=== PATIENT | female | born 1990 | race American Indian/Alaskan Native ===

== ENCOUNTER 2019-02-11 06:30 | Emergency (ER) | payer SELFPAY ==
[2019-02-11 06:57] VITALS: BP 134/76
[2019-02-11] MEDS ORDERED: PEPCID PO ONE (08:24)
[2019-02-11] MEDS ORDERED: NORCO 5/325 PO ONE (08:24)
[2019-02-11] MEDS ORDERED: ZOFRAN ODT PO ONE (08:24)
--- NOTE | 2019-02-11 08:30 | Emergency Department Report ---
ED Abdominal Pain HPI - General Chief Complaint: Abdominal Pain Stated Complaint: ACID REFLUX Time Seen by Provider: 02/11/19 08:10 Source: patient Mode of arrival: Ambulatory Limitations: No Limitations - History of Present Illness Initial Comments: Brielle is a healthy 28-year-old female with history of GERD who presents with epigastric pain generalized pain since 2 this morning. Last night she ate fried peppers and pizza. She has moderately severe pain diffuse with flatus. However previously she recalls abdominal pain episodes with epigastric pain radiating to her back. She attempted ibuprofen without any relief. Denies fever. Denies vomiting. Mild nausea. MD Complaint: abdominal pain -: Gradual, hour(s) (6), This morning Location: diffuse, epigastric Radiation: back Severity: moderate Severity scale (0 -10): 7 Quality: cramping, sharp Consistency: constant Improves With: nothing Worsens With: nothing Associated Symptoms: nausea - Related Data Previous Rx's Medication Instructions Recorded Last Taken Type Famotidine [Acid Controller] 10 mg PO BID 30 Days #60 tablet 02/11/19 Unknown Rx HYDROcodone/APAP 5-325 [Hancock 1 each PO Q6HR PRN #10 tablet 02/11/19 Unknown Rx 5/325] Allergies Allergy/AdvReac Type Severity Reaction Status Date / Time No Known Allergies Allergy Unverified 02/11/19 06:57 ED Review of Systems ROS: Stated complaint: ACID REFLUX Other details as noted in HPI Comment: All other systems reviewed and negative Constitutional: denies: diaphoresis, fever, malaise Gastrointestinal: abdominal pain, nausea. denies: vomiting, diarrhea ED Past Medical Hx - Past Medical History Previous Medical History?: Yes Hx GERD: Yes - Surgical History Past Surgical History?: No - Social History Smoking Status: Current Every Day Smoker - Medications Home Medications: Home Medications Medication Instructions Recorded Confirmed Last Taken Type Famotidine [Acid Controller] 10 mg PO BID 30 Days #60 tablet 02/11/19 Unknown Rx HYDROcodone/APAP 5-325 [Hancock 1 each PO Q6HR PRN #10 tablet 02/11/19 Unknown Rx 5/325] ED Physical Exam - General Limitations: No Limitations General appearance: alert, in no apparent distress, other (smiling laughing rubbing her belly) - Head Head exam: Present: atraumatic, normocephalic - Eye Eye exam: Present: normal appearance - ENT ENT exam: Present: mucous membranes moist - Neck Neck exam: Present: normal inspection, full ROM - Respiratory Respiratory exam: Present: normal lung sounds bilaterally. Absent: respiratory distress, wheezes, rales, rhonchi - Cardiovascular Cardiovascular Exam: Present: regular rate, normal rhythm, normal heart sounds. Absent: systolic murmur, diastolic murmur, rubs, gallop - GI/Abdominal GI/Abdominal exam: Present: soft, normal bowel sounds. Absent: distended, tenderness, guarding, rebound - Extremities Exam Extremities exam: Present: normal inspection - Back Exam Back exam: Present: normal inspection - Neurological Exam Neurological exam: Present: alert, oriented X3 - Psychiatric Psychiatric exam: Present: normal affect, normal mood - Skin Skin exam: Present: warm, dry, intact, normal color. Absent: rash ED Course Vital Signs 02/11/19 06:54 Temperature 98.7 F Pulse Rate 89 Respiratory 18 Rate Blood Pressure 134/76 O2 Sat by Pulse 99 Oximetry ED Medical Decision Making - Medical Decision Making Brielle presents with generalized abdominal pain with episodic epigastric pain. Differential diagnosis includes peptic ulcer disease, GERD, biliary colic, acute pancreatitis. She appears well on today's exam. No signs of peritonitis. No abdominal tenderness or fever. I prescribed famotidine and Hancock. I provided education regarding diagnosis of peptic ulcer disease and cholelithiasis. I provided diet recommendations. She is currently unemployed and uninsured. I strongly advised obtaining health insurance if possible. Critical care attestation.: If time is entered above; I have spent that time in minutes in the direct care of this critically ill patient, excluding procedure time. ED Disposition Clinical Impression: Abdominal pain Disposition: DC-01 TO HOME OR SELFCARE Is pt being admited?: No Does the pt Need Aspirin: No Condition: Stable Instructions: Abdominal Pain (ED), Biliary Colic (ED), Peptic Ulcer (ED) Prescriptions: Famotidine [Acid Controller] 10 mg PO BID 30 Days #60 tablet HYDROcodone/APAP 5-325 [Hancock 5/325] 1 each PO Q6HR PRN #10 tablet PRN Reason: Pain Referrals: [facility] [Outside] - 3-5 Days
== END 2019-02-11 08:37 | disposition home or self-care (01) ==
LOC: ED 06:30
DX: R10.13 Epigastric pain (principal); K21.9 Gastro-esophageal reflux disease without esophagitis; F17.200 Nicotine dependence, unspecified, uncomplicated
CPT/HCPCS: 99282; Q0162

== ENCOUNTER 2019-08-08 01:40 | Emergency (ER) | payer SELFPAY ==
[2019-08-08 02:36] LABS: Basophils % (Auto) 0.2 % (0.0-1.8); Eosinophils # (Auto) 0.1 K/mm3 (0.0-0.4); Eosinophils % (Auto) 0.7 % (0.0-4.3); Hematocrit 40.1 % (30.3-42.9); Hemoglobin 12.9 gm/dl (10.1-14.3); Lymphocytes # (Auto) 2.4 K/mm3 (1.2-5.4); Lymphocytes % (Auto) 24.4 % (13.4-35.0); Mean Corpuscular HGB Conc 32 % (30-34); Mean Corpuscular Volume 88 fl (79-97); Monocytes # (Auto) 0.6 K/mm3 (0.0-0.8); Monocytes % (Auto) 6.4 % (0.0-7.3); Platelet Count 338 K/mm3 (140-440); Red Blood Count 4.54 M/mm3 (3.65-5.03); Red Cell Distribution Width 13.8 % (13.2-15.2)
[2019-08-08] MEDS ORDERED: FAMOTIDINE 20 MG TAB PO ONE (02:51)
[2019-08-08] MEDS ORDERED: ONDANSETRON 4 MG ODT TAB PO ONE (02:51)
[2019-08-08] MEDS ORDERED: ALUM-MAG HYDROXIDE-SIMETHICONE 200-200-20MG/5ML ORAL LIQD 30 ML PO ONE (02:52)
[2019-08-08] MEDS ORDERED: LIDOCAINE VISCOUS 2% 15 ML ORAL LIQD PO ONE (02:52)
[2019-08-08] MEDS ORDERED: DICYCLOMINE 20 MG TAB PO ONE (02:52)
[2019-08-08 02:59] LABS: Alanine Aminotransferase 87 units/L (7-56); Albumin 3.9 g/dL (3.9-5); BUN/Creatinine Ratio 9; Blood Urea Nitrogen 6 mg/dL (7-17); Hemolysis Index 6
--- NOTE | 2019-08-08 04:13 | Emergency Department Report ---
ED Abdominal Pain HPI - General Chief Complaint: Abdominal Pain Stated Complaint: ABD PAIN/ULCER Source: patient, EMS Mode of arrival: Ambulatory Limitations: No Limitations - History of Present Illness Initial Comments: Patient is a 28-year-old -Somali female with a history of chronic GERD who presented to the ED with acute onset presents with severe epigastric pain t hat radiates to the right upper quadrant area with intermittent nausea and vomiting for the last 12 hours. Patient states that her pain has worsened in the last 6 hours. Patient denies dizziness, fever, chills, dysuria, urinary frequency and urgency, chest pain, shortness of breath, cough, diarrhea, syncope or sore throat. MD Complaint: abdominal pain (epigastric; RUQ pain), other (Nausea and vomiting) -: Sudden, hour(s) (12) Location: RUQ, epigastric Radiation: RUQ, epigastric Migration to: no migration Severity: severe Severity scale (0 -10): 7 Quality: cramping, sharp Consistency: constant Improves With: nothing Worsens With: nothing Associated Symptoms: denies other symptoms, nausea, vomiting, anorexia. denies: diarrhea, fever, chills, constipation, dysuria, hematemesis, hematochezia, melena, hematuria, syncope, other Treatments Prior to Arrival: NSAIDs - Related Data LMP Date: 07/09/19 Previous Rx's Medication Instructions Recorded Last Taken Type Famotidine [Acid Controller] 10 mg PO BID 30 Days #60 tablet 02/11/19 Unknown Rx HYDROcodone/APAP 5-325 [Cement 1 each PO Q6HR PRN #10 tablet 02/11/19 Unknown Rx 5/325] Dicyclomine [Bentyl] 20 mg PO Q6H PRN #24 tablet 08/08/19 Unknown Rx Famotidine [Pepcid] 20 mg PO Q12H #60 tablet 08/08/19 Unknown Rx Ondansetron [Zofran ODT TAB] 8 mg PO Q8HR PRN #20 tab.rapdis 08/08/19 Unknown Rx traMADoL [Ultram] 50 mg PO Q6HR PRN #12 tablet 08/08/19 Unknown Rx Allergies Allergy/AdvReac Type Severity Reaction Status Date / Time No Known Allergies Allergy Unverified 02/11/19 06:57 ED Review of Systems ROS: Stated complaint: ABD PAIN/ULCER Other details as noted in HPI Constitutional: denies: chills, fever Eyes: denies: eye pain, eye discharge, vision change ENT: denies: ear pain, throat pain Respiratory: denies: cough, shortness of breath, wheezing Cardiovascular: denies: chest pain, palpitations Endocrine: no symptoms reported Gastrointestinal: abdominal pain (epigastric), nausea, vomiting. denies: diarrhea Genitourinary: denies: urgency, dysuria, discharge Musculoskeletal: denies: back pain, joint swelling, arthralgia Skin: denies: rash, lesions Neurological: denies: headache, weakness, paresthesias Psychiatric: denies: anxiety, depression Hematological/Lymphatic: denies: easy bleeding, easy bruising ED Past Medical Hx - Past Medical History Previous Medical History?: Yes Hx GERD: Yes Additional medical history: Peptic ulcer - Surgical History Past Surgical History?: No - Social History Smoking Status: Current Every Day Smoker Substance Use Type: None - Medications Home Medications: Home Medications Medication Instructions Recorded Confirmed Last Taken Type Famotidine [Acid Controller] 10 mg PO BID 30 Days #60 tablet 02/11/19 Unknown Rx HYDROcodone/APAP 5-325 [Cement 1 each PO Q6HR PRN #10 tablet 02/11/19 Unknown Rx 5/325] Dicyclomine [Bentyl] 20 mg PO Q6H PRN #24 tablet 08/08/19 Unknown Rx Famotidine [Pepcid] 20 mg PO Q12H #60 tablet 08/08/19 Unknown Rx Ondansetron [Zofran ODT TAB] 8 mg PO Q8HR PRN #20 tab.rapdis 08/08/19 Unknown Rx traMADoL [Ultram] 50 mg PO Q6HR PRN #12 tablet 08/08/19 Unknown Rx ED Physical Exam - General Limitations: No Limitations General appearance: alert, in no apparent distress - Head Head exam: Present: atraumatic, normocephalic, normal inspection - Eye Eye exam: Present: normal appearance, PERRL, EOMI Pupils: Present: normal accommodation - ENT ENT exam: Present: normal exam, normal orophraynx, mucous membranes moist, TM's normal bilaterally, normal external ear exam - Neck Neck exam: Present: normal inspection, full ROM - Respiratory Respiratory exam: Present: normal lung sounds bilaterally. Absent: respiratory distress, wheezes, rales, rhonchi, chest wall tenderness, accessory muscle use, decreased breath sounds - Cardiovascular Cardiovascular Exam: Present: regular rate, normal rhythm, normal heart sounds. Absent: systolic murmur, diastolic murmur, rubs, gallop - GI/Abdominal GI/Abdominal exam: Present: soft, tenderness (Palpable epigastric and RUQ tende rness), normal bowel sounds. Absent: guarding, rebound, hyperactive bowel sounds, hypoactive bowel sounds - Extremities Exam Extremities exam: Present: normal inspection, full ROM, normal capillary refill - Back Exam Back exam: Present: normal inspection, full ROM. Absent: tenderness, CVA tenderness (R), CVA tenderness (L), muscle spasm, paraspinal tenderness - Neurological Exam Neurological exam: Present: alert, oriented X3, CN II-XII intact, normal gait, reflexes normal - Psychiatric Psychiatric exam: Present: normal affect, normal mood - Skin Skin exam: Present: warm, dry, intact, normal color. Absent: rash ED Medical Decision Making - Lab Data Result diagrams: 08/08/19 02:11 08/08/19 02:11 - Radiology Data Radiology results: report reviewed, image reviewed Findings [facility] [address] [place] [address] Ultrasound Report Signed Patient: RAMY BRUNSON MR#: [id number] : 1990 Acct:[id number] Age/Sex: 28 / F ADM Date: 08/08/19 Loc: ED Attending Dr: Ordering Physician: CHAN URRUTIA Date of Service: 08/08/19 Procedure(s): US abdomen limited Accession Number(s): [id number] cc: CHAN URRUTIA ULTRASOUND ABDOMEN, LIMITED (RIGHT UPPER QUADRANT) INDICATION: Epigastric and RUQ pain. COMPARISON: None available. FINDINGS: Pancreas: Visualized portion shows no significant abnormality. Liver: No significant abnormality. Gallbladder: Stones are seen along the gallbladder neck measuring up to 1.8 cm. No wall thickening or pericholecystic fluid is identified. Sonographic Pearson's sign: Negative. Bile ducts: No significant abnormality. Common Bile Duct measures 0.6 mm. Free fluid: None. Additional Findings: None. IMPRESSION: Cholelithiasis without sonographic evidence of acute cholecystitis. Signer Name: Anjel Chan MD Signed: 08/08/2019 4:39 AM Workstation Name: [id number] Transcribed By: MN Dictated By: Anjel Chan MD Electronically Authenticated By: Anjel Chan MD Signed Date/Time: 08/08/19438 DD/ 6 TD/TT: - Medical Decision Making This is a 28-year-old female who presented to the ED with epigastric pain that radiates to the right upper quadrant area with nausea and vomiting. In the ED, patient is alert and oriented x3 and is not in any distress. Lab test results were reviewed and showed elevated LFTs and ALT of 87, and AST of 145. Gallbladder ultrasound shows cholelithiasis without sonographic evidence of acute cholecystitis. Patient was treated for pain in the ED and also treated for GERD and nausea and vomiting. On reevaluation, patient's pain was well-cont rolled with medications. Patient was discharged home on pain medications and antiemetics and given referral to the general surgeon on-call Dr. Gomez for follow-up of her cholelithiasis and further evaluation. Patient was otherwise advised return to the ED immediately if symptoms get worse. - Differential Diagnosis GERD; Cholecystitis; Cholelithiasis; Gastroenteritis; Gastritis Critical care attestation.: If time is entered above; I have spent that time in minutes in the direct care of this critically ill patient, excluding procedure time. ED Disposition Clinical Impression: Abdominal pain, acute, epigastric, Nausea and vomiting in adult, Cholelithiasis without cholecystitis GERD (gastroesophageal reflux disease) Qualifiers: Esophagitis presence: without esophagitis Qualified Code(s): K21.9 - Gastro- esophageal reflux disease without esophagitis Disposition: -01 TO HOME OR SELFCARE Is pt being admited?: No Does the pt Need Aspirin: No Condition: Stable Instructions: Gastroesophageal Reflux Disease (ED), Abdominal Pain (ED), Biliary Colic (ED), Cholelithiasis (ED), Acute Nausea and Vomiting (ED) Additional Instructions: Take medication with food, drink plenty fluids and follow-up with the general surgeon on-call Dr. Gomez in 2 to 3 days for reevaluation. Return to the ED immediately if symptoms get worse. Otherwise follow-up with your primary care physician in 7 to 10 days for reevaluation. Prescriptions: Dicyclomine [Bentyl] 20 mg PO Q6H PRN #24 tablet PRN Reason: Pain , Severe (7-10) Famotidine [Pepcid] 20 mg PO Q12H #60 tablet traMADoL [Ultram] 50 mg PO Q6HR PRN #12 tablet PRN Reason: Pain Ondansetron [Zofran ODT TAB] 8 mg PO Q8HR PRN #20 tab.rapdis PRN Reason: Nausea Referrals: [facility] [Outside] - 3-5 Days TREVOR GOMEZ DO [Staff Physician] - 3-5 Days Time of Disposition: 04:17 Print Language: AZERBAIJANI
--- NOTE | 2019-08-08 04:43 | Ultrasound Report ---
ULTRASOUND ABDOMEN, LIMITED (RIGHT UPPER QUADRANT) INDICATION: Epigastric and RUQ pain. COMPARISON: None available. FINDINGS: Pancreas: Visualized portion shows no significant abnormality. Liver: No significant abnormality. Gallbladder: Stones are seen along the gallbladder neck measuring up to 1.8 cm. No wall thickening or pericholecystic fluid is identified. Sonographic Pearson's sign: Negative. Bile ducts: No significant abnormality. Common Bile Duct measures 0.6 mm. Free fluid: None. Additional Findings: None. IMPRESSION: Cholelithiasis without sonographic evidence of acute cholecystitis. Signer Name: Anjel Chan MD Signed: 08/08/2019 4:39 AM Workstation Name: [id number]
[2019-08-08 04:47] LABS: Bilirubin,Urine NEG (Negative); Blood,Urine NEG (Negative); Color,Urine Yellow (Yellow); Protein,Urine <15 mg/dL mg/dL (Negative)
[2019-08-08 05:24] VITALS: BP 128/78
== END 2019-08-08 05:23 | disposition home or self-care (01) ==
LOC: ED 01:40
DX: K21.9 Gastro-esophageal reflux disease without esophagitis (principal); K80.80 Other cholelithiasis without obstruction
CPT/HCPCS: 36415; 76705; 80053; 81001; 83690; 84703; 85025; Q0162

== ENCOUNTER 2020-06-17 07:41 | Emergency (ER) | payer SELFPAY ==
[2020-06-17 08:38] LABS: Basophils % (Auto) 0.2 % (0.0-1.8); Eosinophils # (Auto) 0.2 K/mm3 (0.0-0.4); Hematocrit 37.9 % (30.3-42.9); Hemoglobin 12.5 gm/dl (10.1-14.3); Lymphocytes # (Auto) 3.7 K/mm3 (1.2-5.4); Lymphocytes % (Auto) 34.9 % (13.4-35.0); Mean Corpuscular HGB Conc 33 % (30-34); Mean Corpuscular Volume 89 fl (79-97); Monocytes # (Auto) 0.5 K/mm3 (0.0-0.8); Monocytes % (Auto) 4.3 % (0.0-7.3); Platelet Count 317 K/mm3 (140-440); Red Blood Count 4.26 M/mm3 (3.65-5.03); Red Cell Distribution Width 13.1 % (13.2-15.2)
[2020-06-17 09:04] LABS: Alanine Aminotransferase 16 units/L (7-56); Albumin 3.8 g/dL (3.9-5); Blood Urea Nitrogen 8 mg/dL (7-17); Calcium 8.9 mg/dL (8.4-10.2); Hemolysis Index 1
[2020-06-17 09:42] LABS: BUN/Creatinine Ratio 11
== END 2020-06-17 18:57 ==
LOC: ED 07:41
DX: R10.9 Unspecified abdominal pain (principal); Z53.21 Procedure and treatment not carried out due to patient leaving prior to being seen by health care provider
CPT/HCPCS: 36415; 80053; 85025

== ENCOUNTER 2021-01-16 00:29 | Emergency (ER) | payer MEDICAID ==
[2021-01-16 00:48] VITALS: BP 135/67
[2021-01-16 02:21] LABS: Basophils % (Auto) 0.2 % (0.0-1.8); Eosinophils # (Auto) 0.1 K/mm3 (0.0-0.4); Eosinophils % (Auto) 0.5 % (0.0-4.3); Hematocrit 36.8 % (30.3-42.9); Hemoglobin 12.5 gm/dl (10.1-14.3); Lymphocytes # (Auto) 1.9 K/mm3 (1.2-5.4); Lymphocytes % (Auto) 11.8 % (13.4-35.0); Mean Corpuscular HGB Conc 34 % (30-34); Mean Corpuscular Volume 86 fl (79-97); Monocytes # (Auto) 0.6 K/mm3 (0.0-0.8); Monocytes % (Auto) 3.7 % (0.0-7.3); Platelet Count 332 K/mm3 (140-440); Red Blood Count 4.27 M/mm3 (3.65-5.03); Red Cell Distribution Width 13.2 % (13.2-15.2)
[2021-01-16 02:48] LABS: Albumin 3.9 g/dL (3.9-5); Blood Urea Nitrogen 7 mg/dL (7-17); Calcium 9.5 mg/dL (8.4-10.2); Hemolysis Index 0
[2021-01-16 02:49] LABS: BUN/Creatinine Ratio 18
[2021-01-16 02:59] LABS: Alanine Aminotransferase 13 units/L (7-56)
[2021-01-16 03:37] LABS: Bilirubin,Urine NEG (Negative); Blood,Urine NEG (Negative); Calcium Oxalate Crystals,Urine 3+; Color,Urine Yellow (Yellow); Mucus,Urine 2+ /HPF
[2021-01-16] MEDS ORDERED: ACETAMINOPHEN 500 MG TAB PO ONE (04:41)
[2021-01-16] MEDS ORDERED: ONDANSETRON 4 MG ODT TAB PO ONE (04:41)
--- NOTE | 2021-01-16 06:11 | Ultrasound Report ---
OB ultrasound INDICATION: well-being FINDINGS: Single live intrauterine in transverse position. Amniotic fluid volume appears no rmal. Grade 0 anterior placenta. heart rate 1 60 bpm. Cervical length 4.5 cm. BPD measures 3.83 cm measuring 17 weeks 5 days. Head circumference 15.8 cm measuring 18 weeks 5 days. Abdominal circum ference 13.7 cm measuring 19 weeks 1 day. Femoral length 2.71 cm measuring 18 weeks 2 days. IMPRESSION: Single live intrauterine . No acute findings. Signer Name: Josh Zhou MD Signed: 01/16/2021 6:07 AM Workstation Name: [id number]
--- NOTE | 2021-01-16 06:25 | Emergency Department Report ---
ED Abdominal Pain HPI - General Chief Complaint: Abdominal Pain Stated Complaint: 18 WKS PREG/ABDOMINAL PAIN Source: patient Mode of arrival: Ambulatory Limitations: No Limitations - History of Present Illness Initial Comments: Patient is a A0 30-year-old -Tongan female with a history of GERD and who is approximately 18 weeks gestation presents to the ED with acute onset persistent epigastric pain with nausea and vomiting for the last 3 hours after eating greasy food. Patient states that she has previously been diagnosed with gallstone but has not had this taken out because she is currently 18 weeks . Patient denies dizziness, syncope, hematemesis, hematuria, diarrhea, vaginal bleeding, vaginal discharge, dysuria, urinary frequency and urgency, ch est pain, shortness of breath, fever, chills, cough, headache, or back pain. MD Complaint: abdominal pain -: Sudden, hour(s) (2) Location: epigastric Radiation: none Migration to: no migration Severity scale (0 -10): 3 Quality: cramping, aching Consistency: constant Improves With: nothing Worsens With: eating, vomiting Associated Symptoms: denies other symptoms, nausea, vomiting. denies: diarrhea, fever, chills, constipation, dysuria, hematemesis, melena, hematuria, anorexia, syncope - Related Data Previous Rx's Medication Instructions Recorded Last Taken Type Famotidine [Acid Controller] 10 mg PO BID 30 Days #60 tablet 02/11/19 Unknown Rx HYDROcodone/APAP 5-325 [Dunn 1 each PO Q6HR PRN #10 tablet 02/11/19 Unknown Rx 5/325] Dicyclomine [Bentyl] 20 mg PO Q6H PRN #24 tablet 08/08/19 Unknown Rx Famotidine [Pepcid] 20 mg PO Q12H #60 tablet 08/08/19 Unknown Rx Ondansetron [Zofran ODT TAB] 8 mg PO Q8HR PRN #20 tab.rapdis 08/08/19 Unknown Rx traMADoL [Ultram] 50 mg PO Q6HR PRN #12 tablet 08/08/19 Unknown Rx Acetaminophen [Tylenol] 500 mg PO Q6HR PRN #30 tablet 01/16/21 Unknown Rx Famotidine [Pepcid] 20 mg PO BID #60 tablet 01/16/21 Unknown Rx Promethazine [Phenergan] 25 mg PO Q6HR PRN #30 tab 01/16/21 Unknown Rx Allergies Allergy/AdvReac Type Severity Reaction Status Date / Time No Known Allergies Allergy Unverified 02/11/19 06:57 ED Review of Systems ROS: Stated complaint: 18 WKS PREG/ABDOMINAL PAIN Other details as noted in HPI Constitutional: denies: chills, fever Eyes: denies: eye pain, eye discharge, vision change ENT: denies: ear pain, throat pain Respiratory: denies: cough, shortness of breath, wheezing Cardiovascular: denies: chest pain, palpitations Endocrine: no symptoms reported Gastrointestinal: abdominal pain, nausea, vomiting. denies: diarrhea Genitourinary: denies: urgency, dysuria, discharge Musculoskeletal: denies: back pain, joint swelling, arthralgia Skin: denies: rash, lesions Neurological: denies: headache, weakness, paresthesias Psychiatric: denies: anxiety, depression Hematological/Lymphatic: denies: easy bleeding, easy bruising ED Past Medical Hx - Past Medical History Previous Medical History?: Yes Hx GERD: Yes Additional medical history: Peptic ulcer - Surgical History Past Surgical History?: No - Social History Smoking Status: Current Every Day Smoker Substance Use Type: None - Medications Home Medications: Home Medications Medication Instructions Recorded Confirmed Last Taken Type Famotidine [Acid Controller] 10 mg PO BID 30 Days #60 tablet 02/11/19 Unknown Rx HYDROcodone/APAP 5-325 [Dunn 1 each PO Q6HR PRN #10 tablet 02/11/19 Unknown Rx 5/325] Dicyclomine [Bentyl] 20 mg PO Q6H PRN #24 tablet 08/08/19 Unknown Rx Famotidine [Pepcid] 20 mg PO Q12H #60 tablet 08/08/19 Unknown Rx Ondansetron [Zofran ODT TAB] 8 mg PO Q8HR PRN #20 tab.rapdis 08/08/19 Unknown Rx traMADoL [Ultram] 50 mg PO Q6HR PRN #12 tablet 08/08/19 Unknown Rx Acetaminophen [Tylenol] 500 mg PO Q6HR PRN #30 tablet 01/16/21 Unknown Rx Famotidine [Pepcid] 20 mg PO BID #60 tablet 01/16/21 Unknown Rx Promethazine [Phenergan] 25 mg PO Q6HR PRN #30 tab 01/16/21 Unknown Rx ED Physical Exam - General Limitations: No Limitations General appearance: alert, in no apparent distress - Head Head exam: Present: atraumatic, normocephalic, normal inspection - Eye Eye exam: Present: normal appearance, PERRL, EOMI Pupils: Present: normal accommodation - ENT ENT exam: Present: normal exam, normal orophraynx, mucous membranes moist, TM's normal bilaterally, normal external ear exam - Neck Neck exam: Present: normal inspection, full ROM - Respiratory Respiratory exam: Present: normal lung sounds bilaterally. Absent: respiratory distress, wheezes, rales, stridor, chest wall tenderness, accessory muscle use - Cardiovascular Cardiovascular Exam: Present: regular rate, normal rhythm, normal heart sounds. Absent: systolic murmur, diastolic murmur, rubs, gallop - GI/Abdominal GI/Abdominal exam: Present: soft, tenderness (Palpable mild epigastric tenderness), normal bowel sounds. Absent: guarding, rebound, rigid, hyperactive bowel sounds, hypoactive bowel sounds, organomegaly - Extremities Exam Extremities exam: Present: normal inspection, full ROM, normal capillary refill - Back Exam Back exam: Present: normal inspection, full ROM. Absent: tenderness, CVA tenderness (R), CVA tenderness (L), muscle spasm, paraspinal tenderness, vertebral tenderness - Neurological Exam Neurological exam: Present: alert, oriented X3, CN II-XII intact, normal gait, reflexes normal - Psychiatric Psychiatric exam: Present: normal affect, normal mood - Skin Skin exam: Present: warm, dry, intact, normal color. Absent: rash ED Course Vital Signs 01/16/21 00:47 Temperature 97.5 F L Pulse Rate 93 H Respiratory 20 Rate Blood Pressure 135/67 [Right] O2 Sat by Pulse 100 Oximetry ED Medical Decision Making - Lab Data Result diagrams: 01/16/21 01:47 01/16/21 01:47 - Radiology Data Radiology results: report reviewed, image reviewed [facility] [address] [place] [address] Ultrasound Report Signed Patient: RAMY BRUNSON MR#: [id number] : 1990 Acct:[id number] Age/Sex: 30 / F ADM Date: 01/16/21 Loc: ED Attending Dr: Ordering Physician: KLEVER JOHNSON III, MD Date of Service: 01/16/21 Procedure(s): US OB >= 14 weeks Fetus Accession Number(s): [id number] cc: KLEVER JOHNSON III, MD OB ultrasound INDICATION: well-being FINDINGS: Single live intrauterine in transverse position. Amniotic fluid volume appears normal. Grade 0 anterior placenta. heart rate 1 60 bpm. Cervical length 4.5 cm. BPD measures 3.83 cm measuring 17 weeks 5 days. Head circumference 15.8 cm measuring 18 weeks 5 days. Abdominal circumference 13.7 cm measuring 19 weeks 1 day. Femoral length 2.71 cm measuring 18 weeks 2 days. IMPRESSION: Single live intrauterine . No acute findings. Signer Name: Josh Pascal MD Signed: 01/16/2021 6:07 AM Workstation Name: [id number] Transcribed By: KATRINA Dictated By: ANISH PASCAL MD Electronically Authenticated By: ANISH PASCAL MD Signed Date/Time: 01/16/21606 DD/ 5 TD/TT: - Medical Decision Making This is a A0 30-year-old -Tongan female with a history of GERD and who is approximately 18 weeks gestation presents to the ED with acute onset persistent epigastric pain with nausea and vomiting for the last 3 hours after eating greasy food. Patient states that she has previously been diagnosed with gallstone but has not had this taken out because she is currently 18 weeks . In the ED, patient is alert and oriented x3 and is not in any distress, and is hemodynamically stable. Lab test results were reviewed and showed acute leukocytosis of 15,800. The rest of the lab test results are nonactionable including urinalysis. Pelvic ultrasound showed a single live IUP of approximately 18 weeks and 2 days with a heart rate of 160 bpm with no other acute abnormalities. On reevaluation, patient's pain, nausea and vomiting resolved in the ED. Patient was therefore discharged home on medications including antacids, antiemetics and Tylenol and advised to follow-up with [facility] physician in 3 to 5 days for reevaluation. Patient was advised return to the ED immediately if symptoms get worse. - Differential Diagnosis GERD; gastroenteritis; gallstones; UTI; Critical care attestation.: If time is entered above; I have spent that time in minutes in the direct care of this critically ill patient, excluding procedure time. ED Disposition Clinical Impression: Abdominal pain during in second trimester, Gallstones, Nausea and vomiting in prior to 22 weeks gestation Disposition: TO HOME OR SELFCARE Is pt being admited?: No Does the pt Need Aspirin: No Condition: Stable Instructions: Abdominal Pain (ED), Cholelithiasis, [id number], Nausea and Vomiting, Adult, [id number], Abdominal Pain During , [id number] Additional Instructions: Maintain a clear liquid diet for 12 to 24 hours, drink plenty of fluids, take medication as advised, follow-up with your [facility] physician in 5 to 7 days for reevaluation. Return to the ED immediately if symptoms get worse. Prescriptions: Acetaminophen [Tylenol] 500 mg PO Q6HR PRN #30 tablet PRN Reason: Pain , Severe (7-10) Famotidine [Pepcid] 20 mg PO BID #60 tablet Promethazine [Phenergan] 25 mg PO Q6HR PRN #30 tab PRN Reason: Nausea Referrals: [facility] [Provider Group] - 3-5 Days Time of Disposition: 06:26 Print Language: MOROCC[place]
== END 2021-01-16 06:41 | disposition home or self-care (01) ==
LOC: ED 00:29
DX: O99.612 Diseases of the digestive system complicating pregnancy, second trimester (principal); K80.80 Other cholelithiasis without obstruction; O21.9 Vomiting of pregnancy, unspecified; K21.9 Gastro-esophageal reflux disease without esophagitis; F17.200 Nicotine dependence, unspecified, uncomplicated; Z79.899 Other long term (current) drug therapy; Z3A.18 18 weeks gestation of pregnancy
CPT/HCPCS: 36415; 76805; 80053; 81001; 83690; 84703; 85025; 99284

== ENCOUNTER 2021-07-23 07:37 | Day surgery (SDC) | payer MEDICAID ==
[~2021-07-23 07:37] MED LIST: ceFAZolin/STERILE WATER 2 GM/20 ML SYRINGE IV NR
[2021-07-23] MEDS ORDERED: BACTERIOSTATIC SODIUM CHLORIDE 0.9% 30 ML VIAL INFILTRATI ONE (08:18)
[2021-07-23] MEDS ORDERED: LACTATED RINGERS 1,000 ML IV SCH (08:30)
[2021-07-23] MEDS ORDERED: MAGNESIUM OXIDE 400 MG TAB PO ONE (09:16)
[2021-07-23] MEDS ORDERED: ACETAMINOPHEN 500 MG TAB PO ONE (09:16)
[2021-07-23] MEDS ORDERED: ONDANSETRON 4 MG/2 ML INJ IV PRN (09:17)
[2021-07-23] MEDS ORDERED: HYDROmorphone 1 MG/1 ML INJ IV PRN (09:17)
--- NOTE | 2021-07-23 09:18 | Anesthesia Day of Surgery ---
Anesthesia Day of Surgery - Day of Surgery Patient Examined: Yes Patient H&P Reviewed: Yes Patient is NPO: Yes
--- NOTE | 2021-07-23 09:19 | Anesthesia Consultation ---
Anesthesia Consult and Med Hx Date of service: 07/23/21 - Airway Anesthetic Teeth Evaluation: Chipped ROM Head & Neck: Adequate Mental/Hyoid Distance: Adequate Mallampati Class: Class II Intubation Access Assessment: Good - Pre-Operative Health Status ASA Pre-Surgery Classification: ASA3 Proposed Anesthetic Plan: General - Pulmonary Hx Smoking: No Hx Sleep Apnea: No - Cardiovascular System Hx Hypertension: No - Central Nervous System Hx Psychiatric Problems: No - Gastrointestinal Hx Gastroesophageal Reflux Disease: Yes (Occasional) - Hematic Hx Sickle Cell Disease: No - Other Systems Hx Alcohol Use: No Hx Substance Use: No Hx Cancer: No Hx Obesity: Yes
[2021-07-23] MEDS ORDERED: SUCCINYLCHOLINE CHLORIDE 200 MG/10 ML INJ MDV ONE (09:28)
[2021-07-23] MEDS ORDERED: ROCURONIUM 50 MG/5 ML INJ IV ONE (09:28)
[2021-07-23] MEDS ORDERED: propofoL 200 MG/20 ML VIAL IV ONE (09:28)
[2021-07-23] MEDS ORDERED: dexAMETHasone 20 MG/5 ML VIAL ONE (09:28)
[2021-07-23] MEDS ORDERED: LIDOCAINE MPF (2%) 20 MG/1 ML VIAL 5 ML ONE (09:28)
[2021-07-23] MEDS ORDERED: CELECOXIB 200 MG CAP PO NR (10:00)
[2021-07-23] MEDS ORDERED: MIDAZOLAM 2 MG/2 ML INJ IV NR (10:00)
[2021-07-23] MEDS ORDERED: BUPIVACAINE/PF (0.5%) 5 MG/1 ML 30 ML VIAL INFILTRATI ONE ×2 (11:18→12:52)
[2021-07-23] MEDS ORDERED: LIDOCAINE (1%) 10 MG/1 ML VIAL 20 ML MDV ONE (11:18)
[2021-07-23] MEDS ORDERED: ePHEDrine SULFATE 50 MG/1 ML INJ ONE (12:15)
[2021-07-23] MEDS ORDERED: WATER FOR IRRIG STERILE 1,500 ML BOTTLE IR ONE (12:53)
[2021-07-23] MEDS ORDERED: LIDOCAINE (1%) 10 MG/1 ML VIAL 20 ML MDV INFILTRATI ONE (12:53)
[2021-07-23] MEDS ORDERED: SUGAMMADEX SODIUM 200 MG/2 ML VIAL IV ONE (13:49)
[2021-07-23] MEDS: HYDROmorphone 1 MG/1 ML INJ IV PRN ×3 (14:19→14:51)
[2021-07-23] MEDS ORDERED: HYDROcodone/ACETAMINOPHEN 5-325 MG TAB PO PRN (14:41)
[2021-07-23 15:16] VITALS: BP 142/94
[2021-07-23] MEDS ORDERED: ONDANSETRON 4 MG ODT TAB PO PRN (15:39)
--- NOTE | 2021-07-23 19:29 | Post Anesthesia Evaluation ---
- Post Anesthesia Evaluation Patient Participated: Yes Airway Patent: Yes Stable Respiratory Function: Yes Nausea/Vomiting: No Temp > 96.8F: Yes Pain Manageable: Yes Adequeate Hydration: Yes Anesthesia Complications: No Block Receding Appropriately: Not Applicable Patient on Ventilator: No
--- NOTE | 2021-07-29 07:49 | Operative Report ---
Operative Report Operative Report: Date:07/23/21 Preop diagnosis: cholecystitis with cholelithiasis Postop diagnosis: same Procedure: Robotic cholecystectomy without cholangiogram Surgeon: Dr. Mandujano Care Tech: Anesthesia type: General endotracheal anesthesia Estimated blood loss: 10 cc Specimen: Gallbladder and stone Procedure: Patient is taken to the OR and after timeout are completed the abdomen was prepped with ChloraPrep and draped in a sterile fashion. A 5 mm incision is made in the right subcostal position midclavicular line. A 5 mm Visiport is used to gain access to the peritoneal cavity. Abdomen is insufflated with CO2. 2 additional 5 mm ports were placed one in the right lateral subcostal position and one in a supraumbilical position. In the subxiphoid position a 12 mm port is placed. Later in the case a 3rd 5mm port was placed in the luq. Gallbladder graspers are used through the right subcostal ports. Adhesions over the top of the liver on the right side are noted. The gallbladder was retracted superiorly anteriorly and laterally. The peritoneal reflection and adventitia are dissected with a cautery hook and the harmonic scalpel to expose the cystic duct and cystic artery as well as the cystic cleft. Critical view of safety is demonstrated. The cystic artery is clipped and divided. A clip was placed on the cystic duct at its junction with the gallbladder. 3 clips were placed on the distal cystic duct. The cystic duct was then divided. The gallbladder was dissected off the gallbladder fossa It was then extracted after being placed in a specimen bag through the subxiphoid port. Hemostasis is good as and is improved with the electrocautery hook. The right upper quadrant irrigated with copious amounts of saline and then aspirated. Sponge and needle counts are noted to be correct at this time. A Xfluential system was used to close the subxiphoid incision with an 0 Vicryl suture. The skin is closed with 4-0 Monocryl and Dermabond. Patient tolerated procedure well.
== END 2021-07-23 15:50 | disposition home or self-care (01) ==
LOC: OR 07:37
PROVIDERS: ATTEND Surgery
DX: K80.10 Calculus of gallbladder with chronic cholecystitis without obstruction (principal); K21.9 Gastro-esophageal reflux disease without esophagitis; F17.200 Nicotine dependence, unspecified, uncomplicated; E66.2 Morbid (severe) obesity with alveolar hypoventilation; Z98.890 Other specified postprocedural states; Z91.013 Allergy to seafood; Z79.899 Other long term (current) drug therapy; Z71.89 Other specified counseling; Z68.42 Body mass index [BMI] 45.0-49.9, adult
CPT/HCPCS: 47562; 81025; 87075; 87116; 88304; J0330; J0690; J1100; J1170; J2250; J2405; J2704; J3490; J7120; S2900